=== PATIENT | male | born 1960 | race Caucasian/White ===

== ENCOUNTER 2021-12-04 03:05 | Emergency (ER) | payer BC ==
[2021-12-04 03:24] VITALS: BMI 35.5
[2021-12-04] MEDS ORDERED: MAG HYDROX/AL HYDROX/SIMETH 30 ML UNIT-DOSE CUP PO ONE (03:46)
[2021-12-04] MEDS ORDERED: MAG HYDROX/AL HYDROX/SIMETH 30 ML UNIT-DOSE CUP ONE (03:58)
[2021-12-04] MEDS ORDERED: DEXAMETHASONE 4 MG TABLET (FP) PO ONE (04:55)
[2021-12-04] MEDS ORDERED: DEXAMETHASONE 4 MG TABLET (FP) ONE (05:23)
[2021-12-04 05:30] VITALS: BP 149/97; PULSE 80; TEMP 99.6
[2021-12-05 16:09] LABS: SARS-CoV-2 NAA Not Detected (Not Detected)
== END 2021-12-04 05:30 | disposition home or self-care (01) ==
LOC: JER 03:05
DX: R05.1 Acute cough (principal)
CPT/HCPCS: 71046-TC-FY; 87804; 93005; 93010; 99285-25; C9803-CS; U0003; U0005

== ENCOUNTER 2024-06-18 04:55 | Day surgery (SDC) | payer BC, OTHER ==
[2024-06-10 11:29] VITALS: BMI 38.1
[2024-06-18 11:11] VITALS: TEMP 98.3
[2024-06-18 11:14] VITALS: PULSE 66
[2024-06-18 11:15] VITALS: BP 127/75; RESP 16
== END 2024-06-18 11:24 | disposition home or self-care (01) ==
LOC: JASU-ENDO 04:55
PROVIDERS: ATTEND Internal Medicine Gastroenterology
PROC: 0DJD8ZZ Inspection of Lower Intestinal Tract, Via Natural or Artificial Opening Endoscopic (ICD-10-PCS; principal; 2024-06-18 09:30)
DX: Z12.11 Encounter for screening for malignant neoplasm of colon (principal); K64.8 Other hemorrhoids; K57.30 Diverticulosis of large intestine without perforation or abscess without bleeding